=== PATIENT | male | born 1945 | race Caucasian/White ===

== ENCOUNTER → 2023-01-02 11:07 | Outpatient (CLI) | payer SELFPAY ==
--- NOTE | ~2023-01-02 | CT_ITS ---
Clinical Indication: Pulmonary embolus, DVT CT Scan of the Chest with Contrast: Technique: Contiguous sections were acquired throughout the chest after intravenous administration of 100 cc of Omnipaque 350. Dose reduction technique was used on this scan by utilizing automated expos ure control and iterative reconstruction technique. The dose-length product (DLP) was 549.86 mGy-cm. Findings: There is no evidence of any significant mediastinal, hilar or axillary lymphadenopathy. There is no f illing defect in the pulmonary arterial tree to suggest pulmonary embolus. There is no evidence of ao rtic dissection or aneurysm. There are atherosclerotic calcifications of the aorta There is no evidence of pleural or pericardial effusion. The lungs are clear, aside from biapical scarring. Images through the upper abdomen reveal no abnormalities. Impression: No evidence of pulmonary embolus, aortic dissection, or aortic aneurysm. No significant pulmonary abnormality. Reviewed, dictated and finalized at [facility]. Impression: No evidence of pulmonary embolus, aortic dissection, or aortic aneurysm. No significant pulmonary abnormality.
[2023-01-02 11:26] LABS: Estimated Glomerular Filt Rate > 60
== END ==
PROVIDERS: PCP Family Medicine; Visit Provider Family Medicine
DX: I82.409 Acute embolism and thrombosis of unspecified deep veins of unspecified lower extremity (principal); I26.99 Other pulmonary embolism without acute cor pulmonale; I71.21 Aneurysm of the ascending aorta, without rupture; Z15.89 Genetic susceptibility to other disease; G25.0 Essential tremor; J38.3 Other diseases of vocal cords; I83.90 Asymptomatic varicose veins of unspecified lower extremity
CPT/HCPCS: 71275; Q9967

== ENCOUNTER 2023-12-17 00:16 | Day surgery (SDC) | payer MEDICARE, SELFPAY ==
[2023-12-17 10:33] VITALS: BP 171/98; PULSE 78; RESP 20; TEMP 36.1; O2SAT 100
[2023-12-17] MEDS: LACTATED RINGERS 1,000 ML 150 ML IV CONT (10:42)
--- NOTE | 2023-12-17 10:57 | P.PNAN_ITS ---
Anes - Initial Pre Proc Eval Procedure: Operation Date: 12/17/23 11:30 Proposed Procedures p Colonoscopy - Matias Zapata MD Date/Time: 12/17/23 10:57 Surgeon: Matias Zapata MD Pre Op Diagnosis: Personal Hx. colon polyps Patient Data Age: 78 Gender: M Height: Weight: 93.9 kg Last Vital Signs Temp 97 F L 12/17/23 10:33 Pulse 78 12/17/23 10:33 Resp 20 12/17/23 10:33 BP 171/98 H 12/17/23 10:33 Pulse Ox 100 12/17/23 10:33 O2 Del Method Room Air 12/17/23 10:33 Allergies Allergy/AdvReac Type Severity Reaction Status Date / Time No Known Allergies Allergy Verified 12/17/23 10:30 Home Medications Medication Instructions Recorded Confirmed Type doxycycline hyclate 100 mg capsule 100 mg PO DAILY 11/26/23 12/17/23 History mirtazapine 15 mg tablet 15 mg PO HS 11/26/23 12/17/23 History primidone 50 mg tablet 50 mg PO BID 11/26/23 12/17/23 History propranolol 60 mg capsule,24 60 mg PO DAILY 11/26/23 12/17/23 History hr,extended release Patient hx anesthesia problems: none Family hx anesthesia problems: none Results Review: All pre-operative results and documents have been reviewed as part of the pre- operative evaluation. PMFSH Social History Social History Spiritual care concerns: No Anes - Eval Final PreProcedure Day of Procedure 12/17/23 10:57 Patient weight: obese Heart: regular rate and rhythm Lungs: clear to auscultation Airway: Mallampati scale class II Neurological: alert and oriented Last oral intake: >/= 8 hours ASA classification: III Emergent: no Anesthetic plan: proceed Anesthesia type and monitoring: general GIVS and standard monitoring Results Review: All pre-operative results and documents have been reviewed as part of the pre- operative evaluation. Informed Consent: The patient's anesthetic plan and its attendant risks and benefits were discussed with the patient/family/POA. Questions were solicited and answers provided to the satisfaction of the patient/family/POA.
--- NOTE | 2023-12-17 11:35 | PM.HPGS ---
History of Present Illness History of Present Illness Consent: Risks, benefits, and alternatives have been discussed and questions answered. Patient agrees to proceed with procedure. Chief complaint: Personal Hx. colon polyps Narrative: Guille Arias is a 78 year old male with colon polyp in 2019 Review of Systems Review of Systems: All systems reviewed & are unremarkable except as noted in HPI and below PMFSH Past Medical History Medical History (Updated 12/17/23 @ 11:35 by Matias Zapata MD) Adenomatous colon polyp Social History Social History Spiritual care concerns: No Meds Home Medications and Allergies Home Medications Medication Instructions Recorded Confirmed Type doxycycline hyclate 100 mg capsule 100 mg PO DAILY 11/26/23 12/17/23 History mirtazapine 15 mg tablet 15 mg PO HS 11/26/23 12/17/23 History primidone 50 mg tablet 50 mg PO BID 11/26/23 12/17/23 History propranolol 60 mg capsule,24 60 mg PO DAILY 11/26/23 12/17/23 History hr,extended release Allergies Allergy/AdvReac Type Severity Reaction Status Date / Time No Known Allergies Allergy Verified 12/17/23 10:30 Vital Signs Vital Signs - 24 hr 12/17/23 10:33 Temperature 97 F L Pulse Rate 78 Respiratory Rate 20 Blood Pressure 171/98 H Pulse Oximetry 100 Oxygen Delivery Room Air Exam Const: General: comfortable and no acute distress HENMT: Face/Nose/Sinus: Normal nares present Eyes: General: appearance normal, both eyes and all related structures Neck: Neck: no JVD Resp: Auscultation: clear to auscultation bilaterally Cardio: Rate: regular rate Rhythm: regular rhythm GI: Inspection: non-distended GI Palp: Yes Soft to palpation Skin: General skin exam: normal color Neuro: General: gait normal Speech: normal speech Extrem: General: normal to inspection Psych: Mental Status: mental status grossly normal Assessment and Plan Assessment and plan (1) Adenomatous colon polyp: Code(s): D12.6 - Benign neoplasm of colon, unspecified Status: Acute Assessment and Plan: colonoscopy
[2023-12-17 11:57] VITALS: BP 118/77; PULSE 68; RESP 20; O2SAT 98
[2023-12-17 12:07] VITALS: BP 137/90; PULSE 60; RESP 20; O2SAT 99
[2023-12-17 12:17] VITALS: BP 146/92; PULSE 63; RESP 20; O2SAT 100
== END 2023-12-17 12:34 | disposition home or self-care (01) ==
PROVIDERS: PCP Family Medicine; Referring Provider Internal Medicine Gastroenterology; Visit Provider Internal Medicine Gastroenterology
PROC: 0DJD8ZZ Inspection of Lower Intestinal Tract, Via Natural or Artificial Opening Endoscopic (ICD-10-PCS; CPT 45378; principal; 2023-12-17 11:30)
DX: Z12.11 Encounter for screening for malignant neoplasm of colon (principal); D12.2 Benign neoplasm of ascending colon; K64.8 Other hemorrhoids; K57.30 Diverticulosis of large intestine without perforation or abscess without bleeding; E66.9 Obesity, unspecified
CPT/HCPCS: 45385; 88305; J2704; J7120